=== PATIENT | female | born 1940 | race Caucasian/White ===

== ENCOUNTER 2016-12-22 12:52 | Emergency (ER) | payer MEDICARE, OTHER ==
--- NOTE | ~2016-12-22 | EKG ---
PATIENT: ZELDA NAYAK UNIT #: [id number] Ventricular Rate: 64 BPM Atrial Rate: 64 BPM P-R Interval: 122 ms QRS Duration: 92 ms Q-T Interval: 432 ms QTC Calculation(Bezet): 445 ms P [place]: 49 degrees Calculated R [place]: 74 degrees Calculated T [place]: 63 degrees Diagnosis Line: Normal sinus rhythm Diagnosis Line: Left atrial enlargement Diagnosis Line: Incomplete right bundle branch block Diagnosis Line: Borderline ECG Diagnosis Line: When compared with ECG of 26-FEB-2012 21:19, Diagnosis Line: Premature ventricular complexes are no longer Diagnosis Line: Present Diagnosis Line: T wave inversion no longer evident in Anterior Diagnosis Line: leads Diagnosis Line: Confirmed by JONATHAN RIVERS MD ([id number]) on 12/23/2016 Diagnosis Line: 5:40:43 PM INTERPRETING MD: SILVESTRE RIVAS
--- NOTE | ~2016-12-22 | CR72 ---
[facility] A Service of [facility] RADIOLOGY TEXT RESULTS PATIENT: ZELDA NAYAK LOCATION: [facility] : 41 UNIT #: [id number] AGE: [address]: Blane Hummel MD SEX: F ORDER DR: [id number] [facility] [address] [facility]. [place], [place] [address] [id number] MR#: [id number] Acc #: [id number] NAME: ZELDA NAYAK : 1940 SEX: F STUDY DATE/TIME: 12/22/2016 12:50 UNIT: [facility] ROOM: STUDY DESCRIPTION: CR Chest Single View Portable Attending Physician: Ji Marks M.D. Ordering Physician: Ji Marks M.D. Primary Care Physician: Generic Doctor Not In System MEDICAL IMAGING REPORT This report is preliminary unless electronic signature is present EXAM AP portable chest DATE OF EXAMINATION 12/22/2016 at 12:50 HISTORY 76-year-old female with congestion and cough today. Smoking history. COMPARISON AP portable chest 02/26/2012. FINDINGS Lungs are hyperinflated, probably emphysematous, but free of acute airspace disease. Heart size is within normal limits. No pleural effusion or pneumothorax is identified. No acute osseous abnormalities are identified. IMPRESSION Pulmonary hyperinflation suggesting emphysematous changes. No acute chest findings. Dictated by... Johanna Sommer M.D. THIS IS AN ELECTRONICALLY VERIFIED REPORT Johanna Sommer M.D. at 12/23/2016 11:56 AM Vic TD: 12/22/2016 15:39 JOB #: [id number] MEDICAL IMAGING REPORT [facility] A Service of [facility] RADIOLOGY TEXT RESULTS PATIENT: ZELDA NAYAK LOCATION: [facility] : 41 UNIT #: [id number] AGE: [address]: Blane Hummel MD SEX: F ORDER DR: COPY
[~2016-12-22 12:52] MED LIST: AMOXICILLIN; LEXAPRO; TRAZODONE
[2016-12-22 13:11] LABS: URINE SOURCE CLEAN CATCH
[2016-12-22 13:23] LABS: URINE APPEARANCE CLEAR; URINE BILIRUBIN NEG (NEG); URINE BLOOD NEG (NEG); URINE COLOR YELLOW; URINE GLUCOSE NEG (NEG); URINE KETONE 1+ (NEG); URINE LEUKOCYTE ESTERASE 2+ (NEG); URINE NITRATE NEG (NEG); URINE PROTEIN TRACE (NEG); URINE SPECIFIC GRAVITY 1.016 (1.003-1.035)
[2016-12-22 13:26] LABS: CULTURE INDICATED? YES; URINE BACTERIA AUWI NEG (NEGATIVE); URINE SQUAMOUS EPITHELIAL CELL OCC /[HPF]
[2016-12-22 13:31] LABS: BASOPHIL# 0.1 X10e3 (0-0.3); BASOPHIL% 0.8 % (0-2.5); EOSINOPHIL% 0.2 % (0.0-7.0); HEMATOCRIT 41.7 % (35.0-45.0); HEMOGLOBIN 13.9 gm/dL (12.0-16.0); LYMPHOCYTE# 2.2 X10e3 (1.0-3.5); LYMPHOCYTE% 33.1 % (17.0-45.0); MEAN CELL VOLUME 93.6 FL (83-96); MEAN CORPUSCULAR HEMOGLOBIN 31.2 PG (28-34); MEAN CORPUSCULAR HGB CONC 33.4 g/dL (30-36); MEAN PLATELET VOLUME 7.3 FL (6.5-11.5); MONOCYTE# 0.5 X10e3 (0-1.0); NEUTROPHIL# 3.8 X10e3 (1.5-7.1); NEUTROPHIL% 57.9 % (40-75); PLATELET COUNT 279 X10e3 (140-420); RED BLOOD COUNT 4.46 X10e (3.90-5.30); RED CELL DISTRIBUTION WIDTH 13.8 % (11.0-15.5); WHITE BLOOD COUNT 6.6 X10e3 (4.0-10.5)
[2016-12-22 13:33] LABS: AMPHETAMINE NEG (NEG); BARBITURATES NEG (NEG); BENZODIAZEPINES NEG (NEG); COCAINE NEG (NEG); MARIJUANA POS (NEG); OPIATES NEG (NEG); TRICYCLIC ANTIDEPRESSANTS NEG (NEG); U METHADONE NEG (NEG)
[2016-12-22 13:34] LABS: DIFF IND NO
[2016-12-22 14:02] LABS: ALBUMIN SERUM 4.5 g/dL (3.5-5.0); ALKALINE PHOSPHATASE 72 U/L (32-92); ALT (SGPT) 22 U/L (10-40); AST (SGOT) 29 U/L (10-42); BILIRUBIN, DIRECT 0.1 mg/dL (0.0-0.2); BILIRUBIN,INDIRECT 0.9 mg/dL (0.0-0.9); BLOOD UREA NITROGEN 14 mg/dL (9-23); CALCIUM SERUM 9.4 mg/dL (8.4-10.2); CARBON DIOXIDE 27 mmol/L (22-31); CHLORIDE 102 mmol/L (100-111); CREATININE SERUM 0.8 mg/dL (0.6-1.4); GLOM FILT RATE Estimated ABOVE60 mL/min (>60); GLUCOSE FASTING 76 mg/dL (70-110); POTASSIUM 4.7 mmol/L (3.5-5.1); PROTEIN TOTAL SERUM 7.4 g/dL (6.0-8.3); SALICYLATE <4.0 mg/dL; SODIUM 141 mmol/L (135-145)
[2016-12-22 14:04] LABS: ACETAMINOPHEN <10 ug/mL; ALCOHOL BLOOD <5 mg/dL (0)
[2016-12-22 15:16] LABS: POC - CKMB 3.2 ng/mL (0.0-7.9); POC - TROPONIN <0.05 ng/mL (<=0.05)
== END 2016-12-23 00:36 ==
LOC: CED 12:52
PROVIDERS: Emergency Medicine
DX: R45.851 Suicidal ideations (principal); Z91.14 Patient's other noncompliance with medication regimen; F17.200 Nicotine dependence, unspecified, uncomplicated
CPT/HCPCS: 36415; 71010; 80048; 80076; 80307; 81003; 82553; 84484; 85025; 87086; 93005; 99285; G0480

== ENCOUNTER 2017-03-17 11:33 | Observation (INO) | payer MEDICARE, OTHER ==
--- NOTE | ~2017-03-17 | HP ---
Unit #: [id number] #: [id number] Patient: ZELDA NAYAK [id number] [facility] [address]. [place], [place] [address] [id number] I MR#: [id number] NAME: ZELDA NAYAK ROOM: 571 Age: 76 Sex: F Admission Date: 03/17/2017 : 1940 Attending Physician: Doe Shin M.D. Primary Care Physician: Dulce Saul M.D. HISTORY AND PHYSICAL CHIEF COMPLAINT Dizziness. HISTORY OF PRESENT ILLNESS The patient is a 76-year-old female who presented to [facility] emergency department secondary to some dizziness. She states that she had been having some nausea since the day prior. She had nothing to eat on the day of presentation. She went to [facility] to have some stitches removed and while she was walking she felt lightheaded. She denies shortness of breath and chest pain at that time. She denies diaphoresis, but does confirm continued nausea. While being evaluated in the emergency department the patient did complain of some left chest heaviness and is being admitted for chest pain and cardiac workup. PAST MEDICAL HISTORY 1. Hypertension. 2. Depression. PAST SURGICAL HISTORY Bilateral retina surgeries. SOCIAL HISTORY The patient has had no tobacco for the past one month. She drinks alcohol occasionally. Denies illicit drug use. FAMILY HISTORY Reviewed and noncontributory. ALLERGIES No known drug allergies. REVIEW OF SYSTEMS Ten point review of systems was obtained and negative except as per history of present illness. PHYSICAL EXAMINATION GENERAL: The patient is a 76-year-old female in no acute distress. She appears her stated age. VITALS: Temperature 98.2, pulse 64, blood pressure 155/75. HEENT: Pupils equally round. Extraocular movements intact. Mucous membranes dry. NECK: Supple. No jugular venous distension. No lymphadenopathy. LUNGS: Clear to auscultation bilaterally. Unit #: [id number] #: [id number] Patient: ZELDA NAYAK HEART: Regular rate and rhythm. No murmurs, gallops or rubs. ABDOMEN: Nontender and nondistended. Positive bowel sounds. EXTREMITIES: No clubbing, cyanosis or edema. Warm and dry. PSYCHIATRIC: Alert and oriented times three. NEUROLOGIC: Cranial nerves II through XII intact grossly. The patient moves all extremities equally and with purpose. SKIN: No rashes, bruises or ulcers. MUSCULOSKELETAL: No muscle or joint pain. No muscle or joint swelling. DIAGNOSTIC STUDIES IMAGING: Chest x-ray shows no acute findings. LABORATORY: Chemistries are entirely normal, as is her CBC. ASSESSMENT/PLAN 1. Chest pain. The patient is going today for stress testing. She will likely be discharged tomorrow if stress test is negative. 2. Dizziness. The patient has been evaluated by cardiology and orthostatics have been ordered. 3. Hypertension. Continue home lisinopril prophylaxis. The patient will be admitted for observation and requires no DVT prophylaxis at this time. Dictated by Tarik Serna/gilbert TD: 03/18/2017 16:13 JOB #: [id number] HISTORY AND PHYSICAL Page 1 of 1 X Doe Shin MD X HISTORY AND PHYSICAL
--- NOTE | ~2017-03-17 | CT71 ---
[facility] A Service [facility] RADIOLOGY TEXT RESULTS PATIENT: ZELDA NAYAK LOCATION: [facility] 571-01 : 41 UNIT #: [id number] AGE: [address]: Doe Shin MD SEX: F ORDER DR: [id number] [place] [id number] [facility]. [place], [place] [address] [id number] I MR#: [id number] Acc #: [id number] NAME: ZELDA NAYAK : 1940 SEX: F STUDY DATE/TIME: 03/17/2017 16:48 UNIT: [facility] ROOM: [facility] STUDY DESCRIPTION: CT Head Wo Contrast Attending Physician: Doe Shin M.D. Ordering Physician: Blane Tristan M.D. Primary Care Physician: Dulce Saul M.D. MEDICAL IMAGING REPORT This report is preliminary unless electronic signature is present EXAM CT head without contrast 03/17/2017 HISTORY A 76-year-old female with dizziness and weakness beginning 03/16/2017. COMPARISON STUDIES CT head 01/06/2014 TECHNIQUE Routine unenhanced axial images performed through the brain. This CT exam was performed with one or more of the following radiation dose reduction techniques: automatic exposure control, adjustment of mA and/or kV according to patient size, and iterative reconstruction. FINDINGS No hemorrhage, acute infarction, mass lesion, or abnormal extraaxial fluid collection. No midline shift or focal mass effect. Ventricular system is normal size and configuration. Mild generalized atrophy and mild chronic small vessel disease are stable from prior exam. No acute bony abnormality. Visualized paranasal sinuses are clear. Minimal partial fluid opacification in the inferior aspects of the bilateral mastoid air cells, which may be chronic. IMPRESSION 1. No acute intracranial abnormality. 2. Stable age-related atrophy and chronic small vessel disease. 3. Minimal partial fluid opacification in the inferior aspect of the bilateral mastoid air cells, which may be chronic. This is somewhat similar appearance to prior exam from 01/06/2014. [facility] A Service [facility] RADIOLOGY TEXT RESULTS PATIENT: ZELDA NAYAK LOCATION: [facility] 571-01 : 41 UNIT #: [id number] AGE: [address]: Doe Shin MD SEX: F ORDER DR: Dictated by... Mark Rubi M.D. THIS IS AN ELECTRONICALLY VERIFIED REPORT Mark Rubi M.D. at 03/18/2017 4:49 PM LAZARA/honorio TD: 03/17/2017 23:00 JOB #: [id number] MEDICAL IMAGING REPORT Page 1 of 1 COPY
--- NOTE | ~2017-03-17 | A ---
[facility] Nutrition Therapy DATE: 03/18/17 Patient: ZELDA ROBINKI Physician: MORCAR Address: [address] [facility] Room/Bed: [address] [place] [address], Zip: [place] [address] Admit Date: 03/17/17 Date of : 41 Height: 5 7 Weight: 113 51.3 NUTRITIONAL ASSESSMENT: REASON: SEEING PT FOR LOW BMI. DX: 57 Y.O. FEMALE ADMITTED FOR CHEST PAINS PMH: DEPRESSION, ANXIETY Anthropometrics: 5'7", WT: 113# (51 KG), BMI 17 Labs: WNL Meds: PHENOL-SODIUM, DITROPAN, DESYROL, LOVENOX, ZESTRIL, EFFEXOR I/O & Bowel function: 100/ NONE Skin Integrity: WNL Assessment: 76 Y.O. FEMALE ADMITTED FOR CHEST PAIN. RD SPOKE TO PT AT BEDSIDE AND PT REPORTED COMING TO ER FOR HIGH BLOOD PRESSURE. THE PT REPORTS FOLLOWING A HEALTHY DIET AT HOME AND BEING A LIFE-LONG RUNNER. PT IS CURRENTLY ON A HEALTHY HEART DIET AND REPORTS HAVING A GOOD APPETITE. RD ENCOURAGED PT TO EAT 3 ME[address] RD OFFERED TO ORDER PT ENSURE SUPPLEMENTS FOR ADDITIONAL PROTEIN AND CALORIES, WHICH SHE SAYS SHE DRINKS AT HOME. PT HAD NO OTHER QUESTIONS AT THIS TIME. RD WILL REMAIN AVAILABLE. Dx: UNDERWEIGHT R/T PMH, LIFESTYLE AEB BMI OF 17. Intervention: 1. HEALTHY HEART DIET 2. ENSURE VANILLA BID Monitoring, Evaluation and Goals: 1. ORAL INTAKE; TOLERATE >50% OF MEALS AND SUPPLEMENTS 2. WEIGHT; PREVENT FURTHER UNINTENTIONAL WEIGHT LOSS; PROMOTE GRADUAL WEIGHT GAIN TOWARDS HEALTHY BMI. Recommendations: 1. PLEASE ORDER ENSURE VANILLA BID. 2. CONTINUE HEALTHY HEART DIET. 3. ENCOURAGE ADEQUATE INTAKE. RD TO F/U PER HOSPITAL PROTOCOL. [facility] Nutrition Therapy DATE: 03/18/17 Patient: ZELDA NAYAK Physician: MORCAR Address: [address] [place] [address] Room/Bed: [address] [place] [address], Zip: [place] [address] Admit Date: 03/17/17 Date of : 41 Height: 5 7 Weight: 113 51.3 PT IS AT MILD NUTRITIONAL RISK. Respectfully, NIKKI MUSAETIC INTERN NÉSTOR GHOSH MS, RD, LD [facility] cc: client file
--- NOTE | ~2017-03-17 | CO ---
Unit #: [id number] #: [id number] Patient: ZELDA NAYAK [id number] [address] [place], [place] [address] [id number] I MR#: [id number] NAME: ZELDA NAYAK ROOM: 571 Age: 76 Sex: F Admission Date: 03/17/2017 : 1940 Attending Physician: Doe Shin M.D. Primary Care Physician: Dulce Saul M.D. Consultation Date: 03/17/2017 CONSULTATION REPORT PRIMARY CARE PHYSICIAN Dulce Saul M.D. REASON FOR CONSULTATION Near syncope. HISTORY OF PRESENT ILLNESS This is a 76-year-old white female, who came to the ER for complaint of dizziness and near-syncope. Yesterday, she developed dizziness, nausea, and was ataxic. She was unable to eat or drink. Today, she felt short of breath and her heart was pounding. She had associated nausea and left-sided chest heaviness. She felt so dizzy that she thought she could pass out. She complains of a headache and had a subjective fever and chills. In the emergency room, troponin was negative with no acute ischemic changes on her EKG. She is generally very active and has risks factors for heart disease includes hypertension and a remote history of nicotine abuse, but she has had no prior cardiac testing. PAST MEDICAL HISTORY 1. Hypertension. 2. Depression. 3. Former smoker, but currently uses vapor. PAST SURGICAL HISTORY 1. Dental implants. 2. Eight eye surgery for detached retina. 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 She is recently active. She quit smoking several years ago, but currently uses vapor cigarettes. She denies illicit drug and alcohol use. FAMILY HISTORY Negative for coronary artery disease. ALLERGIES No known drug allergies. HOME MEDICATIONS 1. Klonopin 0.5 mg q.i.d. p.r.n. 2. Zyban 150 mg daily. 3. Trazodone 100 mg nightly. 4. Effexor 100 mg daily. 5. Ditropan 5 mg nightly. Unit #: [id number] #: [id number] Patient: ZELDA NAYAK 6. Lisinopril 10 mg daily. 7. Keflex 500 mg q.i.d. REVIEW OF SYSTEMS CONSTITUTIONAL: Positive for subjective fever and chills. Has no weight gain or weight loss. HEENT: Positive for headache and dizziness. No hearing or visual changes. CARDIOVASCULAR: Has chest pain as described in the HPI. Positive for palpitations. No paroxysmal nocturnal dyspnea or orthopnea. Reports near-syncope. RESPIRATORY: Positive for dyspnea, but no cough or hemoptysis. GASTROINTESTINAL: No abdominal pain, nausea, or vomiting. No constipation or melena. EXTREMITIES: Negative for lower extremity edema. PHYSICAL EXAMINATION VITAL SIGNS: Blood pressure 137/77, heart rate 59, and temperature 98.9. GENERAL: This is a tall, well-developed 76-year-old white female, who is in no acute respiratory distress. NEUROLOGIC: She is awake, alert, and oriented. There are no focal weaknesses. NECK: Trachea is midline. No thyromegaly or lymphadenopathy. No jugular venous distention. HEART: S1 and S2. Heart sounds are normal. No murmurs, rubs, or clicks. Regular rate and rhythm. LUNGS: Clear without rales, rhonchi, or wheeze. ABDOMEN: Soft and nontender with bowel sounds present. EXTREMITIES: Without leg edema. SKIN: Warm and dry. DIAGNOSTIC STUDIES LABORATORY RESULTS: Hemoglobin 14.2, hematocrit 43.7, platelet count 306, and white count 7.4. Sodium 139, potassium 3.9, BUN 17, creatinine 0.9, and glucose 92. Troponin less than 0.05. IMAGING STUDIES: Chest x-ray shows no active disease, but noted for COPD. CARDIOVASCULAR STUDIES: EKG shows normal sinus rhythm, rate of 66 beats per minute with biatrial enlargement. IMPRESSION 1. Vertigo. 2. Near-syncope. 3. Palpitations. 4. Chest pain, rule out coronary artery disease. 5. Hypertension. 6. Chronic obstructive pulmonary disease. PLAN 1. Cardiology was consulted for chest pain and near-syncope. We will check orthostatics to rule out postural hypotension. 2. Troponin is negative, but we will continue to trend. If the troponin remains negative, was scheduled for a Cardiolite stress test in the a.m. to rule out coronary artery disease. EKG shows no acute findings. 3. Echo will be done to evaluate left ventricular systolic function and for valvular heart disease. 4. Start on aspirin and low-dose beta-yeimi. Unit #: [id number] #: [id number] Patient: ZELDA NAYAK 5. Lipid profile and TSH will be obtained. 6. We will need 24-hour Holter monitor on discharge to rule out arrhythmias. We will follow the patient with you. Thank you for allowing us to assist in this patient's care. Dictated by... Ruddy MorelPAbhijeetRAbhijeetNAbhijeet for Tarik Sanchez/mackenzie TD: 03/22/2017 03:31 JOB #: [id number] CONSULTATION REPORT Page 1 of 1 X Josh Mejia APRN X CONSULTATION REPORT
--- NOTE | ~2017-03-17 | EKG ---
PATIENT: ZELDA NAYAK UNIT #: [id number] Ventricular Rate: 66 BPM Atrial Rate: 66 BPM P-R Interval: 148 ms QRS Duration: 80 ms Q-T Interval: 432 ms QTC Calculation(Bezet): 452 ms P [place]: 81 degrees Calculated R [place]: 84 degrees Calculated T [place]: 79 degrees Diagnosis Line: Normal sinus rhythm Diagnosis Line: Biatrial enlargement Diagnosis Line: Abnormal ECG Diagnosis Line: When compared with ECG of 22-DEC-2016 12:39, Diagnosis Line: No significant change was found Diagnosis Line: Confirmed by MCKENNA POWERS MD ([id number]) on Diagnosis Line: 03/19/2017 1:07:01 PM INTERPRETING MD: ALLEN
--- NOTE | ~2017-03-17 | CR72 ---
[facility] A Service of [facility] & [facility] RADIOLOGY TEXT RESULTS PATIENT: ZELDA NAYAK LOCATION: [facility] : 41 UNIT #: [id number] AGE: [address]: Doe Shin MD SEX: F ORDER DR: [id number] [facility] [address] [place], [place] [address] [id number] I MR#: [id number] Acc #: [id number] NAME: ZELDA NAYAK : 1940 SEX: F STUDY DATE/TIME: 03/17/2017 16:13 UNIT: [facility] ROOM: 75292 STUDY DESCRIPTION: CR Chest Single View Portable Attending Physician: Doe Shin M.D. Ordering Physician: Blane Tristan M.D. Primary Care Physician: Dulce Saul M.D. MEDICAL IMAGING REPORT This report is preliminary unless electronic signature is present EXAM Portable chest HISTORY SUPPLIED Left-sided chest pain beginning today. FINDINGS An AP view is obtained. Heart size is normal. Lungs are hyperinflated with evidence of chronic emphysematous and interstitial lung disease. No acute infiltrates are seen. There is atherosclerotic calcification of the aorta. CONCLUSION COPD. No acute findings. Dictated by... Arron Gillespie M.D. THIS IS AN ELECTRONICALLY VERIFIED REPORT Arron Gillespie M.D. at 03/18/2017 6:07 PM HERNAN/luis TD: 03/17/2017 21:59 JOB #: [id number] MEDICAL IMAGING REPORT Page 1 of 1 COPY
--- NOTE | ~2017-03-17 | ST ---
Unit #: [id number] #: [id number] Patient: ZELDA NAYAK [id number] [facility]. [facility] [address] [facility]. [place], [place] [address] [id number] I MR#: [id number] NAME: ZELDA NAYAK : 1940 SEX: F STUDY DATE/TIME: 03/18/2017 UNIT: [facility] ROOM: 571 STUDY DESCRIPTION: Cardiac stress test. Attending Physician: Doe Shin M.D. Primary Care Physician: Dulce Saul M.D. CARDIOLOGY REPORT EXAM Walking Lexiscan Cardiolite stress test. PROCEDURE Baseline EKG sinus bradycardia. Heart rate 53 beats per minute. Mild left atrial abnormality. Slow R wave progression. Lexiscan is a 4 minute test with Lexiscan being injected over the first minute, followed by Cardiolite. EKG during the test showed no significant ST-T wave abnormalities or changes. Maximum heart rate response was 105 beats per minute, with a maximum blood pressure response of 142/78 mmHg. The patient had no complaints of chest pain, palpitations or dizziness. Had increased shortness of breath and fatigue which resolved in the recovery phase. Cardiolite was injected after Lexiscan within the first minute of the test. Radionuclide test pending. Please correlate with nuclear images. Dictated by... Nellie Dewey M.D. CEC/gilbert TD: 03/18/2017 10:35 JOB #: [id number] CC: Dulce Saul M.D. [facility] CARDIOLOGY REPORT Page 1 of 1 X Teresita Juan APRN CARDIOLOGY REPORT
--- NOTE | ~2017-03-17 | TH ---
Unit #: [id number] #: [id number] Patient: ZELDA NAYAK [id number] [address] [address] [id number] I MR#: [id number] NAME: ZELDA NAYAK : 1940 SEX: F STUDY DATE/TIME: 03/18/2017 UNIT: [facility] ROOM: 571 STUDY DESCRIPTION: Lexiscan stress test - Nuclear Attending Physician: Doe Shin M.D. Primary Care Physician: Dulce Saul M.D. CARDIOLOGY REPORT PROCEDURE PERFORMED Lexiscan Cardiolite stress test - Nuclear portion. PROCEDURE Using technetium 99m-labeled Cardiolite, rest and stress SPECT images were obtained. Multiple SPECT images were obtained in various views, including horizontal and vertical long axis and short axis views of the left ventricle. Images were obtained by gated SPECT method. The patient was administered 12 mCi of Cardiolite at rest. The patient was administered 33 mCi of Cardiolite after Lexiscan infusion was completed. On the stress images, there is normal perfusion noted. The rest images show normal perfusion. Comparing the rest and stress images, there is no stress-induced ischemia noted. The left ventricular ejection fraction is calculated to be 75%. There is no focal wall motion abnormality seen. CONCLUSION 1. No stress-induced ischemia noted. 2. The left ventricular ejection fraction is calculated to be 75%. 3. There is no focal wall motion abnormality seen. 4. Normal Lexiscan Cardiolite stress test. Dictated by... Tarik Nolan/gerri TD: 03/18/2017 13:23 JOB #: [id number] CARDIOLOGY REPORT Page 1 of 1 X Li Tello MD <ELECTRONICALLY SIGNED> 05/07/17 1429 CARDIOLOGY REPORT
[2017-03-17 13:08] LABS: POC - CKMB 2.3 ng/mL (0.0-7.9); POC - TROPONIN <0.05 ng/mL (<=0.05)
[2017-03-17 13:42] LABS: BASOPHIL% 0.6 % (0-2.5); EOSINOPHIL% 0.2 % (0.0-7.0); HEMATOCRIT 43.7 % (35.0-45.0); HEMOGLOBIN 14.2 gm/dL (12.0-16.0); LYMPHOCYTE# 1.8 X10e3 (1.0-3.5); LYMPHOCYTE% 24.4 % (17.0-45.0); MEAN CELL VOLUME 93.1 FL (83-96); MEAN CORPUSCULAR HEMOGLOBIN 30.2 PG (28-34); MEAN CORPUSCULAR HGB CONC 32.5 g/dL (30-36); MEAN PLATELET VOLUME 7.9 FL (6.5-11.5); MONOCYTE# 0.4 X10e3 (0-1.0); MONOCYTE% 5.7 % (3.0-12.0); NEUTROPHIL# 5.1 X10e3 (1.5-7.1); NEUTROPHIL% 69.1 % (40-75); PLATELET COUNT 306 X10e3 (140-420); RED BLOOD COUNT 4.69 X10e (3.90-5.30); RED CELL DISTRIBUTION WIDTH 14.2 % (11.0-15.5); WHITE BLOOD COUNT 7.4 X10e3 (4.0-10.5)
[2017-03-17 13:44] LABS: DIFF IND NO
[2017-03-17 14:12] LABS: ALBUMIN SERUM 4.3 g/dL (3.5-5.0); BILIRUBIN,TOTAL 0.7 mg/dL (0.2-2.0); BUN/CREATININE RATIO 18.88; CALCIUM SERUM 9.2 mg/dL (8.4-10.2); CREATININE SERUM 0.9 mg/dL (0.6-1.4); GLOM FILT RATE Estimated 62.6 mL/min (>60); POTASSIUM 3.9 mmol/L (3.5-5.1); PROTEIN TOTAL SERUM 7.4 g/dL (6.0-8.3)
[2017-03-17] MEDS ORDERED: KLONOPIN0.5 MG PO (14:20)
[2017-03-17] MEDS ORDERED: WELLBUTRIN SR150 MG PO (14:21)
[2017-03-17] MEDS ORDERED: EFFEXOR PO (14:21)
[2017-03-17] MEDS ORDERED: DESYREL100 MG PO (14:21)
[2017-03-17] MEDS ORDERED: PATIENT'S PHARMACY (14:33)
[2017-03-17 14:35] LABS: POC - TROPONIN <0.05 ng/mL (<=0.05)
[2017-03-17] MEDS ORDERED: LISINOPRIL PO (15:02)
[2017-03-17] MEDS ORDERED: KEFLEX500 M1 PO (15:02)
[2017-03-17] MEDS ORDERED: DITROPAN XL PO (15:02)
[2017-03-17 16:36] LABS: URINE SOURCE CLEAN CATCH
[2017-03-17 16:50] LABS: URINE APPEARANCE CLEAR; URINE BILIRUBIN NEG (NEG); URINE BLOOD 2+ (NEG); URINE COLOR YELLOW; URINE GLUCOSE NEG (NEG); URINE KETONE 1+ (NEG); URINE LEUKOCYTE ESTERASE NEG (NEG); URINE NITRATE NEG (NEG); URINE PROTEIN NEG (NEG); URINE SPECIFIC GRAVITY 1.013 (1.003-1.035); URINE UROBILINOGEN 0.2 MG/DL (NEG)
[2017-03-17 16:52] LABS: U HYALINE CASTS AUWI 0-2 /[LPF]; URBCS1 AUWI 0-2 /[HPF] (0-2); URINE BACTERIA AUWI NEG (NEGATIVE); URINE SQUAMOUS EPITHELIAL CELL NONE SEEN /[HPF]; UWBCS1 AUWI 0-2 (0-5)
[2017-03-17 17:01] LABS: CULTURE INDICATED? NO
[2017-03-17 21:50] LABS: CK TOTAL 40 IU/L (26-140)
[2017-03-18 03:06] LABS: CK TOTAL 46 IU/L (26-140)
[2017-03-18 03:33] LABS: CHOLESTEROL 195 mg/dL (0-200); HDL CHOLESTEROL 60 mg/dL (35-95); LDL CHOLESTEROL 122 mg/dL (-130); LDL/HDL RATIO 2 RATIO (0-4); TRIGLYCERIDES 64 mg/dL (10-160)
[2017-03-18] MEDS ORDERED: LO-DOSE ASPIRIN81 M1 PO (16:28)
[2017-03-18] MEDS ORDERED: FLORINEF0.1 MG PO (16:28)
== END 2017-03-18 18:41 | disposition home or self-care (01) ==
LOC: CED 11:33 → CEDOF 19:04 → CED 19:17 → C5C 22:17 → CEDOF 22:17 → C5C 03-18 18:41
PROVIDERS: Emergency Medicine; Nurse Practitioner
DX: R07.9 Chest pain, unspecified (principal); R55 Syncope and collapse; R42 Dizziness and giddiness; R00.2 Palpitations; I10 Essential (primary) hypertension; J44.9 Chronic obstructive pulmonary disease, unspecified; I07.1 Rheumatic tricuspid insufficiency; Z87.891 Personal history of nicotine dependence
CPT/HCPCS: 36415; 70450; 71010; 78452; 80053; 80061; 81003; 82550; 82553; 83690; 84443; 84484; 85025; 93005; 93017; 93306; 96361; 96372; 96374; 99284; A9500; G0378; J1650; J2405; J2785

== ENCOUNTER → 2017-04-06 | Outpatient (CLI) | payer MEDICARE, OTHER ==
[~2017-04-06] MED LIST changes: +DESYREL100 MG PO; +DITROPAN XL PO; +EFFEXOR PO; +FLORINEF0.1 MG PO; +KEFLEX500 M1 PO; +KLONOPIN0.5 MG PO; +LISINOPRIL PO; +LO-DOSE ASPIRIN81 M1 PO; +PATIENT'S PHARMACY; +WELLBUTRIN SR150 MG PO
--- NOTE | ~2017-04-06 | MR32 ---
[facility] A Service of [facility] & [facility] RADIOLOGY TEXT RESULTS PATIENT: ZELDA NAYAK LOCATION: [facility] : 41 UNIT #: [id number] AGE: [address]: ADAIR AGUIRRE MD SEX: F ORDER DR: [id number] [facility] [address] [facility]. [place], [place] [address] [id number] MR#: [id number] Acc #: [id number] NAME: ZELDA NAYAK : 1940 SEX: F STUDY DATE/TIME: 04/06/2017 9:24 UNIT: [facility] ROOM: STUDY DESCRIPTION: MR Cervical Wo Contrast Attending Physician: Adair Aguirre M.D. Referring Physician: Adair Aguirre M.D. Ordering Physician: Adair Aguirre M.D. Primary Care Physician: Adair Aguirre M.D. MRI CENTER REPORT This report is preliminary unless electronic signature is present. EXAM MRI of the cervical spine without contrast dated 04/06/2017. COMPARISON Plain film cervical spine dated 03/23/2017. HISTORY Neck, left shoulder pain, arm pain and numbness in the third to fifth fingers for the last 3 to 3-1/2 weeks. The pain wakes her up. TECHNIQUE Multisequence multiplanar imaging of the cervical spine was obtained without contrast. FINDINGS Vertebral body heights and alignment are relatively preserved. Disc osteophyte complexes are noted at multiple levels with loss of normal cervical curvature. Edematous endplate changes are noted, particularly at C5-6 and T1-2. Cord demonstrates normal expected course, caliber and signal. Pre- and paravertebral soft tissues do not demonstrate any significant abnormality. C2-3: Mild disc osteophyte complex with moderate left and mild right facet hypertrophic change. Mild left neural foraminal encroachment in the mid aspect of the foramen with relatively patent superior and inferior aspect. No significant nerve impingement. C3-4: Disc osteophyte complex with bilateral uncinate spurs, mild bilateral facet changes. Suspicious small central protrusion. Moderate to severe left neural foraminal narrowing is seen. C4-5: Disc osteophyte complex with bilateral uncinate spurs, worse on the right. Severe right and dwbpuomr-ig-hclosl left neural foraminal narrowing is noted with borderline size to mild canal stenosis. Moderate STS. [facility] A Service of [facility] RADIOLOGY TEXT RESULTS PATIENT: ZELDA NAYAK [facility] UNIT #: [id number] AGE: [address]: ADAIR AGUIRRE MD SEX: F ORDER DR: right facet hypertrophic changes noted. C5-6: Disc osteophyte complex which is most prominent in the center. Bilateral uncinate spurs are noted with severe bilateral neural foraminal narrowing and orza-er-uxgibumo bilateral facet changes. Borderline size to mild canal stenosis. C6-7: Disc osteophyte complex with superimposed qljzdlg-hy-gonmq subarticular moderate broad-based protrusion. Moderate canal stenosis is seen. Bilateral uncinate spurs are noted with meqv-li-gjwxipuz left neural foraminal narrowing of the superior aspect with relatively patent inferior portions. Grms-ki-mvxsenih canal stenosis. C7-T1: Concentric disc bulge with small left fadesjw-ni-yblnsziiequs protrusion with mild mass effect on the adjacent thecal sac. No neural foraminal narrowing. Borderline size to mild canal stenosis. Moderate left and mild right facet hypertrophic changes are noted. IMPRESSION 1. Degenerative changes are noted at multiple levels of the cervical spine, relatively worse at C6-7, followed by C3-4 and C7-T1, as described above. 2. There is a tgohyhd-af-speyb subarticular broad-based protrusion at C6-7 with pspd-an-evpcakql canal stenosis and superior left neural foraminal narrowing. 3. Cord is unremarkable. Dictated by... Isra Bravo M.D. THIS IS AN ELECTRONICALLY VERIFIED REPORT Isra Bravo M.D. at 04/07/2017 3:40 PM CPR/luis TD: 04/06/2017 12:56 JOB #: [id number] MRI CENTER REPORT Page 1 of 1 COPY
== END | disposition home or self-care (01) ==
LOC: CMRI 08:47
DX: M50.123 Cervical disc disorder at C6-C7 level with radiculopathy (principal); M47.22 Other spondylosis with radiculopathy, cervical region; M47.23 Other spondylosis with radiculopathy, cervicothoracic region; M48.02 Spinal stenosis, cervical region
CPT/HCPCS: 72141